=== PATIENT | female | born 1965 | race Two or more races ===

== ENCOUNTER 2023-08-04 17:45 | Emergency (ER) | payer OTHER ==
[~2023-08-04] VITALS: Ht 167.6 cm; Wt 60.9 kg
[2023-08-04 19:51] LABS: Basophils # (auto) 0.1 10 ^3/uL (0-0.2); Basophils % (auto) 0.5 % (0.0-2.0); Eosinophils # (auto) 0 10 ^3/uL (0-0.8); Eosinophils % (auto) 0.1 % (0.0-7.0); Hematocrit 30.7 % (36.0-46.0); Hemoglobin 10.2 g/dL (12.2-16.2); Lymphocytes # (auto) 1.4 10 ^3/uL (0.4-5.4); Lymphocytes % (auto) 10.1 % (10.0-50.0); Mean Corpuscular Hemoglobin 30.5 pg (28.0-32.0); Mean Corpuscular Hgb Conc. 33.1 g/dL (32.0-36.0); Monocytes # (auto) 0.6 10 ^3/uL (0-1.3); Monocytes % (auto) 4.6 % (0.0-12.0); Neutrophils % (auto) 84.7 % (37.0-80.0); Red Blood Cells 3.33 10^6/uL (4.0-5.20); Red Cell Distribution Width 14.8 % (11.8-14.3); White Blood Cell 14.2 10^3/uL (4.4-10.8)
[2023-08-04 20:10] LABS: Alanine Aminotransferase 75 U/L (7-40); Albumin 3.9 g/dL (3.2-4.8); Alkaline Phosphatase 198 U/L (46-116); Anion Gap 7 (5-15); Aspartate Aminotransferase 91 U/L (13-40); BUN/Creatinine Ratio 27.4 (10.0-20.0); Bilirubin, Total 0.3 mg/dL (0.2-1.0); Blood Urea Nitrogen 17 mg/dL (9-23); Calcium 9.8 mg/dL (8.5-10.1); Carbon Dioxide 29 mmol/L (20-30); Chloride 104 mmol/L (98-107); Glucose 123 mg/dL (74-106); Potassium 3.7 mmol/L (3.5-5.1); Sodium 140 mmol/L (136-145); Total Protein 5.7 g/dL (5.7-8.2)
[2023-08-04] MEDS: KETOROLAC TROMETH 30 MG/ML 1ML VIAL IV ONE (20:30)
[2023-08-04] MEDS: BACLOFEN 10 MG TAB PO ONE (23:52)
[2023-08-04 23:53] LABS: Urine Bacteria None Seen /hpf (None Seen)
[2023-08-05 00:04] LABS: Urine Amorphous Crystal FEW /hpf (None Seen); Urine Blood Negative /uL (Negative); Urine Clarity Clear (Clear); Urine Color Yellow (Yellow); Urine Protein, UAD Negative (Negative); Urine Specific Gravity 1.013 (1.001-1.035); Urine Urobilinogen Normal (Negative); Urine WBC <1 /hpf (0 - 5)
[2023-08-05 01:25] VITALS: BP 127/74; PULSE 89; RESP 17; TEMP 98.2; O2SAT 97
== END 2023-08-05 01:39 | disposition home or self-care (01) ==
LOC: EDBD 17:45 → ER 17:48
DX: S32.018A Other fracture of first lumbar vertebra, initial encounter for closed fracture (principal); N13.30 Unspecified hydronephrosis; R55 Syncope and collapse; Z85.9 Personal history of malignant neoplasm, unspecified; Z88.8 Allergy status to other drugs, medicaments and biological substances; X58.XXXA Exposure to other specified factors, initial encounter; Y93.E1 Activity, personal bathing and showering; Y92.89 Other specified places as the place of occurrence of the external cause; Y99.8 Other external cause status
CPT/HCPCS: 36415; 70450; 72131; 74176; 80053; 81001; 84484; 85025; 93005; 96374; 99285; J1885